=== PATIENT | female | born 1935 | race Caucasian/White ===

== ENCOUNTER → 2018-07-14 13:58 | Outpatient (CLI) | payer MEDICARE, OTHER ==
[2013-01-28 06:30] VITALS: BMI 22.0
== END | disposition home or self-care (01) ==
LOC: D.CT 13:58
DX: R05 Cough (principal)

== ENCOUNTER → 2019-06-16 13:03 | Outpatient (CLI) | payer MEDICARE, OTHER ==
[2013-01-28 06:30] VITALS: BMI 22.0
== END | disposition home or self-care (01) ==
LOC: D.CT 13:03
PROVIDERS: ATTEND Family Medicine
DX: R42 Dizziness and giddiness (principal); R26.89 Other abnormalities of gait and mobility

== ENCOUNTER → 2019-08-16 12:19 | Outpatient (CLI) | payer MEDICARE, OTHER ==
[2013-01-28 06:30] VITALS: BMI 22.0
== END | disposition home or self-care (01) ==
LOC: D.RAD 08-10 13:00
PROVIDERS: ATTEND Family Medicine
DX: R13.10 Dysphagia, unspecified (principal)

== ENCOUNTER 2021-05-12 08:30 | Emergency (ER) | payer MEDICARE, OTHER ==
[~2021-05-12] VITALS: Ht 167.6 cm; Wt 65.5 kg
[2021-05-12 08:41] VITALS: Ht 167.6 cm; Wt 65.5 kg
[2021-05-12] MEDS ORDERED: NIFEDIPINE PO (08:44)
[2021-05-12] MEDS ORDERED: ASTORVASTATIN PO (08:45)
[2021-05-12] MEDS ORDERED: IRBESARTAN PO (08:45)
[2021-05-12] MEDS ORDERED: GABAPENTIN100 MG PO (08:47)
[2021-05-12 10:08] LABS: BASOPHILS 0.6 % (0-2); EOSINOPHILS 1.3 % (0-7); HEMATOCRIT 39.2 % (36.0-48.0); HEMOGLOBIN 12.8 g/dL (12-16); LYMPHOCYTES 31.1 % (15-50); MCH 26.8 pg (26.0-34.0); MCHC 32.7 g/dL (31.0-37.0); MCV 82.2 fL (80.0-100.0); MEAN PLATELET VOLUME 7.3 fL (7.4-10.4); MONOCYTES 8.7 % (2-11); NEUTROPHILS 58.3 % (40-80); PLATELET COUNT 267 10x3/uL (130-400); RBC 4.77 10x6/uL (4.00-5.40); RDW 14.8 % (11.5-14.5); WBC 5.5 10x3/uL (4.8-10.8)
[2021-05-12 10:12] LABS: BILIRUBIN NEGATIVE (NEGATIVE); KETONE NEGATIVE mg/dL (< 1+); NITRITE NEGATIVE (NEGATIVE); SQUAMOUS EPITHELIAL 1 HPF (0-4); UROBILINOGEN NORMAL mg/dL (< 2); WHITE CELLS - URINE 1 HPF (0-4)
[2021-05-12 10:14] LABS: CALC OSMOLALITY 282 mosm/kg (275-300); CALCIUM 9.4 mg/dL (8.5-10.1); CARBON DIOXIDE 29.1 mmol/L (21.0-32.0); CHLORIDE - SERUM 106 mmol/L (98-107); GLUCOSE 96 mg/dL (74-106); POTASSIUM - SERUM 4.1 mmol/L (3.5-5.1); SODIUM 141 mmol/L (136-145); UREA NITROGEN 17 mg/dL (7-18); eGFR NON AFRICAN AMERICAN 56 mL/min (90-120)
[2021-05-12 10:15] LABS: INR 1.06 (0.85-1.17); PROTIME 12.8 SECONDS (11.6-15.0)
[2021-05-12 10:29] LABS: ALBUMIN 3.9 g/dL (3.4-5.0); ALKALINE PHOSPHATASE 92 U/L (30-120); ALT (SGPT) 23 U/L (10-68); BILIRUBIN - TOTAL 0.71 mg/dL (0.2-1.3); CKMB 1.2 U/L (0.0-3.6); CREATINE KINASE 74 UL (21-215); MAGNESIUM - SERUM 2.3 mg/dL (1.8-2.4); PROTEIN - SERUM 7.1 g/dL (6.4-8.2); TROPONIN-I < 0.017 ng/mL (0.000-0.060)
[2021-05-12] MEDS ORDERED: MECLIZINE HCL25 MG PO (11:00)
[2021-05-12 11:06] VITALS: BP 131/68
== END 2021-05-12 11:08 | disposition home or self-care (01) ==
LOC: D.ER 08:30
PROVIDERS: Family Medicine
DX: R42 Dizziness and giddiness (principal); I10 Essential (primary) hypertension; Z95.0 Presence of cardiac pacemaker